=== PATIENT | female | born 1960 | race Caucasian/White ===

== ENCOUNTER → 2018-03-01 | Outpatient (CLI) | payer OTHER | LOC: COL.PUL 12:43 | DX: J45.909 Unspecified asthma, uncomplicated (principal) | CPT/HCPCS: J7674 ==

== ENCOUNTER → 2020-03-02 | Outpatient (CLI) | payer OTHER | LOC: MC.RAD 13:53 | DX: Z12.31 Encounter for screening mammogram for malignant neoplasm of breast (principal) ==

== ENCOUNTER → 2021-12-23 | Outpatient (CLI) | payer OTHER | LOC: MC.RAD 10:49 | DX: Z12.31 Encounter for screening mammogram for malignant neoplasm of breast (principal) ==